=== PATIENT | female | born 1985 | race American Indian/Alaskan Native ===

== ENCOUNTER 2016-02-21 17:51 | Inpatient (IN) | payer MEDICAID ==
[2016-02-21] MEDS ORDERED: LACTATED RINGERS 1,000 ML ONE (18:11)
[2016-02-21] MEDS ORDERED: MINERAL OIL PO PRN (18:12)
[2016-02-21] MEDS ORDERED: PHENERGAN PR PRN ×2 (18:12→19:20)
[2016-02-21] MEDS ORDERED: SUBLIMAZE IV PRN (18:12)
[2016-02-21] MEDS ORDERED: BRETHINE SUB-Q PRN (18:12)
[2016-02-21] MEDS ORDERED: ePHEDrine SULFATE IV PRN (18:12)
[2016-02-21] MEDS ORDERED: STADOL IV PRN (18:12)
[2016-02-21] MEDS ORDERED: BRETHINE IVP PRN (18:12)
--- NOTE | 2016-02-21 18:19 | History and Physical Report ---
History of Present Illness Date of examination: 02/21/16 Date of admission: 02/21/16 17:54 Chief complaint: active labor at term History of present illness: 30 yo at 39 wk 6d admitted in active labor. A pos, GBS neg, Rub Im. Remainder of H&P from Missed period Visit and confirmed today OB Intake Ethnicity: Vital Signs Height: 62 in. Weight (lb): 170 BMI: 31.2 Pre- Weight: 170 BP: 118/ 68 mm Hg Ur. Protein: Negative Ur. Glucose: Negative Chief Complaint/Current Status: c/o missed peroid.................igarcia lmp 04/21/2015 pt sts she had u/s done and dont know alfredo Menstrual History Regularity: regular Menses every: 28 days Duration: 5 LMP: 04/25/2015 LMP reliability: month known LMP character: normal test type: urine test Date: 10/16/2015 BC at conception: other Planned ? no EDC Calculations LMP: 01/30/2016 EDC Confirmation: 02/22/2016 Gestational Age: 21 4/7 weeks Past History : 5 Term Births: 2 Premature Births: 0 Living Children: 2 Para: 2 Mult. Births: 0 Prev : 0 Aborta: 2 Elect. Ab: 1 Spont. Ab: 1 Ectopics: 0 # 1 Delivery date: 10/2002 Weeks Gestation: 19? Delivery type: Delivery location: [facility] # 2 Delivery date: 12/16/2004 Weeks Gestation: 34 labor: yes Delivery type: Hours of labor: 2 Delivery location: [facility] Sex: Female weight: 4-? Name: María Comments: infant hospitalized 1week # 3 Delivery date: 12/24/2005 Weeks Gestation: 39 labor: no Delivery type: Hours of labor: 8 Anesthesia type: epidural Delivery location: [facility] Sex: Male weight: 7-? Name: Lang Comments: cerclage placed # 4 Delivery date: 01/2015 Delivery type: EAB Past Medical History: Negative Past Medical History Past Surgical History: D&C: (2014) Cerclage (2005) Past Medical History Surgery (Non-inspector health care facilities): D&C: (2014) Cerclage (2005) Abnormal PAP: positive, repeat normal Uterine Anomaly: negative Social Hx: [place] Patient is single Infection History Hx of STD: chlamydia Personal hx. of genital herpes: no Partner hx. of genital herpes: no Genetic History Congenital Heart Defect: Mom: no Dad: no Kavon Disease: Mom: no Dad: no Thalassemia Mom: no Dad: no Neural Tube Defect Mom: no Dad: no Down's Syndrome Mom: no Dad: no Hernan-Sachs Mom: no Dad: no Sickle Cell Disease/Trait Mom: no Dad: no Hemophilia Mom: no Dad: no Muscular Dystrophy Mom: no Dad: no Cystic Fibrosis Mom: no Dad: no [place] Mom: no Dad: no Mental Retardation Mom: no Dad: no Fragile X Mom: no Dad: no Other Genetic/Chromosomal Disorder Mom: no Dad: no Child w/other defect Mom: no Dad: no Active Medications (reviewed today): FORMULA 27-1 MG ORAL TABS ( VIT-FE FUMARATE-FA) 1 po q day as directed 19 TABS ( VIT-DSS-FE FUM-FA TABS) 1 tab q d Current Allergies (reviewed today): No known allergies Laboratory Results Date/Time Collected: 10/16/2015 Routine Urinalysis Protein: Negative Glucose: Negative Urine HCG: positive Review of Systems General Complains of fatigue. Denies fever, chills, sweats, anorexia, weakness, malaise, weight loss and sleep disorder. Complains of pelvic pain. Denies vaginal discharge, incontinence, dysuria, hematuria, urinary frequency, amenorrhea, menorrhagia, abnormal vaginal bleeding, genital sores, decreased libido, painful periods, painful sex, urinary urgency, hot flashes, vaginal dryness, vaginal itching and vaginal odor. CV Denies chest pains, palpitations, syncope, dyspnea on exertion, orthopnea, PND and peripheral edema. Resp Denies cough, dyspnea at rest, excessive sputum, hemoptysis, wheezing and pleurisy. GI Denies nausea, vomiting, diarrhea, constipation, change in bowel habits, abdominal pain, melena, hematochezia, jaundice, gas/bloating, indigestion/ heartburn, dysphagia and odynophagia. Breast Complains of breast pain. Denies left breast lump, right breast lump, nipple discharge, bloody discharge from nipple, abnormal mammogram and breast enlargement. Psych Denies depression, anxiety, irritability and mood swings. PHYSICAL EXAM HEENT: normocephalic, no lesions or deformities Neck/Thyroid: supple, thyroid normal Skin no significant abnormal lesions or rashes Chest: respiratory effort normal, clear to auscultation Breasts: skin/areolae normal, no masses, no nipple discharge, no erythema/warmth /tenderness, and axillae normal. CV: regular, normal S1-S2, no murmur, no rub, no gallop Abdomen: normal bowel sounds, soft, nontender, no HSM Musculoskeletal: grossly normal ROM in joints, no joint tenderness or muscle weakness Neuro: no gross anomalities Extremities: no clubbing, cyanosis, or edema SIZE MARKER Exams Vulva/Vagina: No lesions, normal BUS, normal rugae Cervix: No lesions; no cervical motion tenderness Uterus: enlarged palpated at umbilicus Adnexae: Unable to palpate due to uterine size Rectovaginal: exam defered Results All other labs normal. Assessment and Plan - Patient Problems (1) Active labor at term Diagnosis Date: 02/21/16 Current Visit: Yes Status: Acute Plan to address problem: delivery
[2016-02-21] MEDS ORDERED: LACTATED RINGERS 1,000 ML IV SCH (19:00)
[2016-02-21] MEDS ORDERED: PITOCin/NS 30 UNIT/500ML 500 ML IV SCH ×2 (19:00)
[2016-02-21] MEDS ORDERED: PITOCin/NS 20 UNIT/1000ML DRIP 1,000 ML IV SCH ×2 (19:00→20:00)
[2016-02-21 19:17] LABS: Hematocrit 21.9 % (30.3-42.9); Mean Corpuscular HGB Conc 32 % (30-34); Mean Corpuscular Hemoglobin 28 pg (28-32); Mean Corpuscular Volume 89 fl (79-97); Platelet Count 145 K/mm3 (140-440); Red Blood Count 2.47 M/mm3 (3.65-5.03); White Blood Count 7.3 K/mm3 (4.5-11.0)
--- NOTE | 2016-02-21 19:18 | Procedure Note ---
OB Delivery Note - Delivery Date of Delivery: 02/21/16 Surgeon: KATHRINE MONTANO Progressive Care Unit Registered Nurse: KATHRINE MONTANO Estimated blood loss: 300cc - Vaginal Delivery presentation: vertex Delivery position: OA Intrapartum events: none Delivery induction: none Delivery augmentation: rupture of membranes Delivery monitor: external FHT, external uterine Route of delivery: Delivery placenta: spontaneous Delivery cord: 3 umbilical vessels Episiotomy: none Delivery laceration: none Anesthesia: none - Infant A at 1 minute: 8 at 5 minutes: 9 Infant Gender: Male (6#8oz)
[2016-02-21] MEDS ORDERED: BENADRYL PO PRN (19:20)
[2016-02-21] MEDS ORDERED: DULCOLAX PR PRN (19:20)
[2016-02-21] MEDS ORDERED: TYLENOL PO PRN (19:20)
[2016-02-21] MEDS ORDERED: TUCKS PAD TP PRN (19:20)
[2016-02-21] MEDS ORDERED: MILK OF MAGNESIA PO PRN (19:20)
[2016-02-21] MEDS ORDERED: NORCO 5/325 PO PRN (19:20)
[2016-02-21] MEDS ORDERED: PHENERGAN PO PRN (19:20)
[2016-02-21] MEDS ORDERED: DERMOPLAST TP PRN (19:20)
[2016-02-21] MEDS ORDERED: LANSINOH TP PRN (19:20)
[2016-02-21] MEDS ORDERED: ZOFRAN IV PRN (19:20)
[2016-02-21] MEDS ORDERED: SODIUM CHLORIDE FLUSH SYRINGE 10 ML IV NR (20:00)
[2016-02-21] MEDS: MOTRIN PO SCH (22:12)
--- NOTE | 2016-02-22 06:38 | Discharge Summary ---
Providers - Providers Date of Admission: 02/21/16 17:54 Date of discharge: 02/22/16 (pt desires d/c after 24 hours) Attending physician: KATHRINE MONTANO Primary care physician: KATHRINE MONTANO Hospitalization Reason for admission: active labor Delivery: Episiotomy: none Laceration: none Incision: normal Other procedures: none complications: none Discharge diagnosis: IUP at term delivered baby: male Hospital course: uncomplicated vaginal delivery Pt w/o complaint VSS FF below umb Lochia small perineum intact H&H pending Doing well s/p vag delivery P: d/c today with instructions Pt will call for circ in 1 week Desires tubal will flag scheduling Condition at discharge: Good Disposition: DISCHARGED TO HOME OR SELFCARE - Discharge Diagnoses (1) Spontaneous vaginal delivery Status: Acute Comment: rto 1 week Plan - Discharge Medications Prescriptions: Ibuprofen [Motrin 600 MG tab] 600 mg PO Q8H PRN #30 tablet PRN Reason: Pain Lidocain2.5%/Prilocai2.5% [Emla] 5 gm TP 1XW #1 tube - Provider Discharge Summary Activity: routine, no sex for 6 weeks, no heavy lifting 4 weeks, no strenuous exercise Diet: routine Instructions: routine Additional instructions: [] Smoking cessation referral if applicable(refer to patient education folder for contact #) [] Refer to [facility] Booklet Call your doctor immediately for: * Fever > 100.5 * Heavy vaginal bleeding ( >1 pad per hour) * Severe persistent headache * Shortness of breath * Reddened, hot, painful area to leg or breast * Drainage or odor from incision. * Keep incision clean and dry at all times and follow doctor's instructions regarding bathing/showering - Follow up plan Follow up: KATHRINE MONTANO MD [Primary Care Provider] - 7 Days (Congratulations! Please call [phone] to schedule your visit in 4 weeks and your son's circumcision in 1 week. Bring EMLA cream with you to his visit. Call with concerns.)
[2016-02-22 07:17] LABS: Hematocrit TNR % (30.3-42.9); Hemoglobin TNR gm/dl (10.1-14.3)
[2016-02-22 07:47] LABS: Hematocrit 34.2 % (30.3-42.9)
[2016-02-22] MEDS: MOTRIN PO SCH ×3 (07:49→23:33)
[2016-02-22 07:53] LABS: Hemoglobin 11.1 gm/dl (10.1-14.3)
[2016-02-22] MEDS ORDERED: BOOSTRIX IM ONE (08:00)
[2016-02-23] MEDS: MOTRIN PO SCH (06:20)
[2016-02-23] MEDS ORDERED: FLUARIX QUAD 2016-2017(36 MOS+) IM ONE (09:56)
[2016-02-23 11:27] VITALS: BP 118/69
== END 2016-02-23 12:00 | disposition home or self-care (01) | DRG 775 ==
LOC: TRG 17:51 → LD 17:54 → OB 21:10
PROVIDERS: ADMIT Obstetrics & Gynecology; ATTEND Obstetrics & Gynecology
PROC: 10E0XZZ Delivery of Products of Conception, External Approach (ICD-10-PCS; principal; 2016-02-21)
PROC: 3E0234Z Introduction of Serum, Toxoid and Vaccine into Muscle, Percutaneous Approach (ICD-10-PCS; 2016-02-23)
DX: O80 Encounter for full-term uncomplicated delivery (principal); Z3A.39 39 weeks gestation of pregnancy; Z37.0 Single live birth; Z86.19 Personal history of other infectious and parasitic diseases; Z98.890 Other specified postprocedural states; Z23 Encounter for immunization; Z83.3 Family history of diabetes mellitus; Z82.49 Family history of ischemic heart disease and other diseases of the circulatory system; Z80.1 Family history of malignant neoplasm of trachea, bronchus and lung
CPT/HCPCS: 36415; 85014; 85018; 85027; 86850; 86900; 86901; 90471; 90686; 90715; 99211; G0463; J2590; J7120